=== PATIENT | female | born 1955 | race Caucasian/White ===

== ENCOUNTER 2025-05-10 10:25 | Outpatient (AMB) | payer MEDICARE, SELFPAY ==
--- NOTE | 2025-05-10 10:33 | MHC.OFFVIS ---
Intake Visit Reasons: 6 month PN Allergies amoxicillin Allergy (Unknown, Verified 05/10/25 10:34) Unknown Medication List - Last Reconciled 05/10/25 by Lilo Fall CNP atorvastatin 40 mg PO DAILY gabapentin 600 mg PO DAILY losartan-hydrochlorothiazide 50-12.5 mg 1 tab PO DAILY rizatriptan take 1 tab at onset of headache; if no relief may repeat 1 tab after at least 2 hrs; max = 3 tabs/24 hr PO 30 days HPI Comments Details: 70-year-old woman with HTN, PN and associated pain, and migraine. She was doing okay. Pain was controlled with gabapentin.?Migraines would happen in spurts. She could have headache every day for a week and then could go few weeks without any. Rizatriptan as needed helped. Triggers included weather changes and lack of sleep.?Sleep was not so good. She tried trazodone, but did not like how she felt. 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 [facility] Medical History (Updated 05/10/25 @ 10:36 by Lilo Fall CNP) Peripheral neuropathy Hypertension Insomnia GERD (gastroesophageal reflux disease) Depression Migraine without aura Review of Systems Const Denies chills, Denies daytime sleepiness, Reports difficulty sleeping, Denies fatigue, Denies fever(s), Denies frequent falls, Reports headache(s), Denies increased appetite, Denies poor appetite, Denies snoring, Denies weakness, Denies weight gain and Denies weight loss Eyes Denies loss of vision ENT Denies vertigo, Denies dizziness and Reports headache(s) Card Denies chest pain at rest, Denies chest pain with activity, Denies syncope, Denies leg edema and Denies palpitations Resp Denies snoring GI Denies constipation, Denies heartburn, Denies diarrhea and Denies nausea Denies urinary frequency, Denies urinary incontinence and Denies urinary urgency Musc Denies abnormal gait, Denies numbness and Denies tingling Skin/Breast Denies dry skin and Denies rash Neuro Denies abnormal gait, Denies vertigo, Denies dizziness, Denies syncope, Denies frequent falls, Reports headache(s), Denies lack of coordination, Denies loss of vision, Denies memory loss, Denies numbness, Denies restless legs, Denies seizure-like activity, Denies tingling, Denies paresthesias, Denies tremor(s) and Denies weakness Psych Denies anxiety, Denies depression, Denies auditory hallucinations, Denies memory loss, Denies visual hallucinations and Denies suicidal ideation Endo Denies fatigue and Denies palpitations Physical Exam Const Other: General Appearance:? normal, in no acute distress. Skin:? no rashes, no significant birthmarks. Heart:? S1, S2 normal, no murmurs. Lungs:? clear anteriorly and posteriorly. Extremities:? no edema. Psych:? alert, oriented, cognitive function intact, cooperative with exam. Neuro Other: Mental Status:?Normal attention, orientation, memory and affect.? Cranial Nerves:?Pupils are equal, round and reactive to light. External occular muscles are intact. Visual dc are full. Face is symmetrical. Facial sensations are normal. Tongue is midline. Palate elevates symmetrically. Shoulder shrugging is normal. Hearing to bedside conversation is normal. Sensory Exam:?....? Coordination:?No ataxia,?no titubation.? Gait Exam: Within normal limits. Cerebellar Signs:?[id number] is okay. Extrapyramidal System:?No tremor, rigidity with normal facial expressions.? Pronator Drift:?Not present.? Involuntary Movements:?No tremors seen.? Speech:?Normal.? Results Reviewed Results Reviewed: MRI brain [facility] at [place] in Nov 2021: WNL (reported) Mammogram at [facility] in Nov 2020: L breast nodule Assessment & Plan Assessment & Plan (1) Migraine without aura: Code(s): G43.009 - Migraine without aura, not intractable, without status migrainosus Category: Medical Qualifiers: Status migrainosus presence: without status migrainosus Intractability: not intractable Qualified Code(s): G43.009 - Migraine without aura, not intractable, without status migrainosus Plan: Continue rizatriptan 10mg 1 tablet as needed for migraine. (2) Peripheral neuropathy: Code(s): G62.9 - Polyneuropathy, unspecified Category: Medical Qualifiers: Peripheral neuropathy type: polyneuropathy, unspecified Qualified Code(s): G62.9 - Polyneuropathy, unspecified Plan: Continue gabapentin 600mg 1 tablet daily. Plan Meds tried: Topamax, Verapamil, Gabapentin, sumatriptan, rizatriptan Coding Level of Care Code Est Pt Level 4 (48833) Diagnoses Migraine without aura and without status migrainosus, not intractable G43.009 Status migrainosus presence: without status migrainosus Intractability: not intractable Peripheral polyneuropathy G62.9 Peripheral neuropathy type: polyneuropathy, unspecified
--- OUTSIDE RECORDS SUMMARY | 2025-05-10 11:18 | XMS_ITS | Clinical Summary ---
Author Organization [facility] Address [address] [place] [address] Phone Care Team Providers Care Greens Tier Name Role Phone Anay Brady MD Primary Care Provider [phone] Allergies Active Allergy Reactions Criticality Noted Date Comments Amoxicillin Other 08/26/2017 Medications acetaminophen (TYLENOL) 500 mg tablet Take 1 Tablet by mouth every 6 hours as needed for Pain. 4 Active cetirizine (ZyrTEC) 10 mg tablet TAKE 1 TABLET BY MOUTH EVERY DAY . *OTC NC* 4 Active gabapentin (NEURONTIN) 300 mg capsule 2 tabs qHS PO, then 2 tabs PO earlier in day prn 1 Active rizatriptan (MAXALT) 10 mg tablet Take 1 Tablet by mouth 2 times daily as needed for Migraine. 4 Active ibuprofen (ADVIL,MOTRIN) 600 mg tablet Take 1 Tablet by mouth every 8 hours as needed for Pain. 2 Active triamcinolone acetonide (KENALOG-40) 40 mg/mL injection Inject 0.5 mL into the articular space once for 1 dose. 3 Active clotrimazole (LOTRIMIN) 1 % cream Apply topically 2 (two) times a day. 15 g 1 4 Active Additional Information Patient not taking.Reported on 05/03/2025 tiZANidine (ZANAFLEX) 2 mg tablet TAKE 1 TABLET (2 MG TOTAL) BY MOUTH EVERY 8 (EIGHT) HOURS IF NEEDED FOR MUSCLE SPASMS. 180 tablet 1 5 Active diclofenac (VOLTAREN) 1 % topical gel Apply 2 g topically 2 (two) times a day. 60 g 2 5 Active traMADoL (ULTRAM) 50 mg tabletIndicati ons:Chronic midline low back pain without sciatica,Chron ic right-sided thoracic back pain Take 2 tablets (100 mg total) by mouth 2 (two) times a day if needed for moderate pain. Max Daily Amount: 200 mg 40 tablet 5 Active atorvastatin (LIPITOR) 40 mg tablet Take 1 tablet (40 mg total) by mouth at bedtime. 90 tablet 2 5 Active losartan-hydro CHLOROthiazide (HYZAAR) 50-12.5 mg per tablet Take 1 tablet by mouth 1 (one) time each day. 90 tablet 1 5 Active mirtazapine (REMERON) 7.5 mg tablet Take 1 tablet (7.5 mg total) by mouth at bedtime. 30 each 5 5 11/04/19 26 Active atorvastatin (LIPITOR) 40 mg tablet TAKE 1 TABLET BY MOUTH EVERY DAY 4 05/03/20 25 Discontin ued(Reord er) traMADoL (ULTRAM) 50 mg tablet Take 1 Tablet by mouth at bedtime as needed for Pain. 3 05/03/20 25 Discontin ued(Expir ed) fexofenadine ([place]) 180 mg tablet Take 1 Tablet by mouth daily for 30 days. 4 05/03/20 25 Discontin ued(Ineff ective) fluconazole (Diflucan) 100 mg tablet Take 1 tablet (100 mg total) by mouth 1 (one) time each day. 7 each 5 05/03/20 25 Discontin ued(Ineff ective) losartan-hydro CHLOROthiazide (HYZAAR) 50-12.5 mg per tablet Take 1 tablet by mouth 1 (one) time each day. 90 tablet 1 5 05/03/20 25 Discontin ued(Reord er) traZODone (DESYREL) 50 mg tablet Take 1 tablet (50 mg total) by mouth at bedtime as needed for sleep. 30 tablet 5 5 05/08/20 Discontin ued(Expir ed) mirtazapine (REMERON) 7.5 mg tablet Take 1 tablet (7.5 mg total) by mouth at bedtime. 30 each 5 5 05/08/20 Discontin ued(Reord er) Active Problems Problem Noted Date Diagnosed Date Insomnia 05/03/2025 Chronic pain of right ankle 03/16/2023 Depression 03/16/2023 Assessment & Plan (11/30/2024 11:49 AM EDT): Edema 03/05/2021 Chronic frontal sinusitis 12/18/2020 Hyperlipidemia 12/18/2020 Assessment & Plan (11/30/2024 11:49 AM EDT): Overweight (BMI 25.0-29.9) 12/18/2020 Venous insufficiency 12/18/2020 Breast nodule 11/28/2020 Overview (06/14/2024): 11/26/20: Left, developing . 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 Migraine 06/08/2020 Post-nasal drip 06/08/2020 Encounters Date Type Department Care Team Description 05/08/2025 Telephone Internal Medicine [address] [phone] Anay Brady MD 05/03/2025 8:45 AM EDT Office Visit Internal Medicine [address] [phone] Anay Brady MD Insomnia, unspecified type (Primary Dx); Mixed hyperlipidemia; Essential hypertension; Overweight (BMI 25.0-29.9) 05/01/2025 10:30 AM EDT Treatment [address] [phone] Gracie Treviño, PT Chronic midline low back pain without sciatica (Primary Dx); Chronic right-sided thoracic back pain 04/26/2025 3:30 PM EDT Treatment [address] [phone] Gracie Treviño, PT Chronic midline low back pain without sciatica (Primary Dx); Chronic right-sided thoracic back pain 04/24/2025 9:45 AM EDT Treatment [address] [phone] Daron Canales, [employer] Chronic midline low back pain without sciatica (Primary Dx); Chronic right-sided thoracic back pain 04/20/2025 3:00 PM EDT Treatment [address] [phone] Gracie Treviño, PT Chronic midline low back pain without sciatica (Primary Dx); Chronic right-sided thoracic back pain 04/17/2025 2:00 PM EDT Treatment [address] [phone] Daron Canales, [employer] Chronic midline low back pain without sciatica (Primary Dx); Chronic right-sided thoracic back pain 04/12/2025 3:30 PM EDT Treatment [address] [phone] Daron Canales, [employer] Chronic midline low back pain without sciatica (Primary Dx); Chronic right-sided thoracic back pain 03/16/2025 1:30 PM EDT Evaluation [address] [phone] Gracie Treviño, PT Chronic midline low back pain without sciatica (Primary Dx); Chronic right-sided thoracic back pain 03/16/2025 Plan of Care Documentation [facility] [address] [place] [address] 02/16/2025 8:15 AM EDT Office Visit Internal Medicine [facility] 175 [facility] [address] [place] [phone] Anay Brady MD Chronic midline low back pain without sciatica (Primary Dx); Chronic right-sided thoracic back pain 02/14/2025 11:20 PM EDT - 02/15/2025 6:13 AM EDT Emergency [facility] [address] [place] [phone] Azeem Long MD Flank pain (Primary Dx); Chronic right-sided thoracic back pain Discharge Disposition: Home or Self Care 02/14/2025 Telephone Internal Medicine - [place] 175 [facility] [address] [place] [phone] Anay Brady MD from Last 3 Months Immunizations Name Administration Dates Next Due Influenza trivalent, 0.5mL ( Fluzone High-dose) 65yo and older 06/08/2020 Pneumococcal conjugate 13 va lent (Prevnar 13, PCV13) 2mo and older 06/08/2020 Pneumococcal polysaccharide 23 valent (Pneumovax 23) 2yo and older 03/13/2022 Surgical History Surgery Date Site/Laterality Comments OTHER SURGICAL HISTORY 08/18/2017 PROCEDURE: SKIN CYST; COMMENT: Dr Mahesh Beltre removed back inclusion cyst SECTION 10/1981 PROCEDURE: HISTORICAL ; COMMENT: and 09/1982, both daughters by C-sections, breech then placenta previa WISDOM TOOTH EXTRACTION 04/1979 Bilateral PROCEDURE: HISTORICAL WISDOM TEETH EXTRACTION Medical History Medical History Date Comments Essential hypertension 06/08/2020 DX:Essent ial hypertension; COMMENT: On meds since age 48's Migraine syndrome 06/08/2020 DX:Migraine sy ndrome Hyperlipidemia 06/08/2020 DX:Hyperlipidemi a Post-nasal drip 06/08/2020 DX:Post-nasal dr ip 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 Depression Venous insufficiency Family History Medical History Relation Name Comments Other: back surgery Brother No Known Problems Daughter 1 Other: chronic bronchitis Daughter 2 in childhood mainly Hyperlipidemia Father Hypertension Father Other: kidney failure Father a ge 87 Coronary artery disease Maternal Grandfather 75, 3 yrs after hip Fx Coronary artery disease Maternal Grandmother 75 Hyperlipidemia Mother Hypertension Mother Other: ?MA Mother age 70 in her sleep Other: PAD leg amput Paternal Grandfather 80y/o Dementia Paternal Grandmother ag e 93 Allergies Sister Keira 6 yrs younger. Eczema Sister Keira 1 yr younger Relation Name Status Comments Brother Alive Daughter 1 Alive Daughter 2 Alive Father Maternal Grandfather Maternal Grandmother Mother Paternal Grandfather Paternal Grandmother Sister Keira Alive Social History Tobacco Use Types Packs/Day Years Used Date Smoking Tobacco: Never Smokeless Tobacco: Never Tobacco Cessation:Counseling Given: Not Answered Alcohol Use Standard Drinks/Week Comments Yes 0 (1 standard drink = 0.6 oz pur e alcohol) Food Access & Nutrition Answer Date Rec orded Do you have access to a vari ety of food including fruits and vegetables? Yes 07/16/2024 Health Literacy Answer Date Recorded How often do you need to hav e someone help you when you read instructions, pamphlets, or other written material from your doctor or pharmacy? Never 07/16/2024 Caregiver: How often do you need to have someone help you when you read instructions, pamphlets, or other written material from your doctor or pharmacy? Not on file 07/16/2024 Financial Risk Answer Date Recorded How hard is it for you to pa y for the very basics like food, housing, medical care, and air conditioning / heating? Not very hard 07/16/2024 Transportation Answer Date Recorded Has the lack of transportati on kept you from meetings, work, or from getting things needed for daily living? No Has the lack of transportati on kept you from medical appointments or from getting medications? No 07/16/2024 Social Isolation Answer Date Recorded How often do you feel lonely or isolated from those around you? Sometimes 07/16/2024 Food Risk Answer Date Recorded Within the past 12 months we worried whether our food would run out before we got money to buy more. Never true 07/16/2024 Within the past 12 months th e food we bought just didn't last and we didn't have money to get more. Never true 07/16/2024 Dependent Care Answer Date Recorded Do you need help finding or paying for care for your loved ones. For example, child adolescent psychiatrist or elderly care for an older adult? No 07/16/2024 Education Answer Date Recorded Do you think completing more education or training, like finishing a GED, going to college, or learning a trade, would be helpful for you? N/A 07/16/2024 Employment and Income Answer Date Recor ded During the last four weeks, have you been actively looking for work? No 07/16/2024 Living Situation Answer Date Recorded What is your living situation? 1 09/15/2023 Interpersonal Safety Answer Date Record ed Physical Abuse 11/24/2024 Verbal Abuse 11/24/2024 Comments No Sex and Gender Information Value Date Recorded Sex Assigned at Female 08/09/2024 1:34 PM EST Legal Sex Female 9:30 PM EST Gender Identity Female 08/09/2024 1:34 PM EST Sexual Orientation Straight 08/09/2024 1: 34 PM EST Obstetrics History Last Filed Vital Signs Vital Sign Reading Time Taken Comments Blood Pressure 112/62 05/03/2025 8:47 AM EDT Pulse 71 05/03/2025 8:47 AM EDT Temperature 36.6 C (97.9 F) 05/03/2025 8:47 AM EDT Respiratory Rate 18 05/03/2025 8:47 AM EDT Oxygen Saturation 95% 05/03/2025 8:47 AM EDT Inhaled Oxygen Concentration - - Weight 68.9 kg (152 lb) 05/03/2025 8:47 AM EDT Height 154.9 cm (5' 1 ) 05/03/2025 8:47 AM EDT Body Mass Index 28.72 05/03/2025 8:47 AM EDT Plan of Treatment Upcoming Encounters Date Type Department Care Team (Late st Contact Info) Description 05/18/2025 12:00 PM EDT Treatment [address] [phone] Daron Canales PTA 05/25/2025 9:30 AM EDT Treatment [facility] [address] [phone] Daron Canales, [employer] 06/01/2025 9:30 AM EDT Treatment [facility] [address] [phone] Daron Canales, [employer] 06/08/2025 9:30 AM EDT Treatment [facility] [address] [phone] Gracie Treviño, PT 06/15/2025 9:30 AM EDT Treatment [facility] [address] [phone] Gracie Treviño, PT 11/07/2025 9:00 AM EST Office Visit Internal Medicine - [place] 175 [facility] [address] [place] [phone] Anay Brady MD [address] [place] [phone] Health Maintenance Due Date Last Done Comments DTaP,Tdap,and Td Vaccines (1 - Tdap) 1972 Zoster Vaccines (1 of 2) 2003 Osteoporosis Screening (Bone Density Screening) 08/23/2022 COVID-19 Vaccine ( - 2023- season) 2024 Influenza Vaccine (#1) 2025 06/08/2020 Social Influencers of Health Screening 07/16/2025 07/16/2024 Falls Risk Assessment 11/30/2025 11/30/2024, 025 Medicare Annual Wellness Visit 11/30/2025 11/30/2024 Breast Cancer Screening 12/09/2025 12/10/19, 12/03/2022, 11/28/2021, Additional history exists Hypertension/CHF/CAD Annual BMP Blood Test 02/14/2026 02/14/2025, 08/09/2024, 07/21/2024, Additional history exists RSV Immunization Adult Patients (1 - 1-dose 75+ series) 2028 Cholesterol Screening (Lipid Panel) 01/18/2029 01/19/2024, 01/19/2024 Colorectal Cancer Screening: Colonoscopy 11/24/2034 11/24/2024 Hepatitis C Screening Completed 06/12/2020 Pneumococcal Vaccine: 50+ Years Completed 03/13/2022, 06/08/2020 Depression Screening Completed 11/30/2024 HIB Vaccines Aged Out No longer eligi ble based on patient's age to complete this topic HPV Vaccines Aged Out No longer eligi ble based on patient's age to complete this topic Hepatitis A Vaccines Aged Out No long er eligible based on patient's age to complete this topic Hepatitis B Vaccines Aged Out No long er eligible based on patient's age to complete this topic IPV Vaccines Aged Out No longer eligi ble based on patient's age to complete this topic MMR Vaccines Aged Out No longer eligi ble based on patient's age to complete this topic Meningococcal ACWY Vaccine Aged Out N o longer eligible based on patient's age to complete this topic Meningococcal B Vaccine Aged Out No l onger eligible based on patient's age to complete this topic RSV Immunization Patients Under 20 months Aged Out No longer eligible based on patient's age to complete this topic Varicella Vaccines Aged Out No longer eligible based on patient's age to complete this topic Procedures Procedure Name Priority Date/Time Associated Diagnosis Comments ECG ANNOTATED 02/16/2025 CT ANGIO CHEST/ABDOMEN/PELVIS WO AND/OR W CONTRAST STAT 02/15/2025 2:26 AM EDT Flank pain XR THORACIC SPINE 3 VIEWS STAT 02/14/2025 8:37 PM EDT XR LUMBAR SPINE 2-3 VIEWS STAT 02/14/2025 8:37 PM EDT XR CHEST 2 VIEWS STAT 02/14/2025 8:32 PM EDT TROPONIN I HIGH SENSITIVITY STAT 02/14/2025 8:16 PM EDT CBC WITH AUTO DIFFERENTIAL STAT 02/14/2025 6:59 PM EDT B-TYPE NATRIURETIC PEPTIDE STAT 02/14/2025 6:59 PM EDT MAGNESIUM STAT 02/14/2025 6:59 PM EDT LIPASE STAT 02/14/2025 6:59 PM EDT COMPREHENSIVE METABOLIC PANEL STAT 02/14/2025 6:59 PM EDT CBC AND DIFFERENTIAL STAT 02/14/2025 6:59 PM EDT TROPONIN I HIGH SENSITIVITY STAT 02/14/2025 6:59 PM EDT ECG 12-LEAD STAT 02/14/2025 6:40 PM EDT COLONOSCOPY Routine 11/24/2024 12:34 PM EDT Colon cancer screening LIPID PANEL Routine 01/19/2024 JONAS SCREENING DIGITAL Routine 12/10/2023 8:59 AM EDT Encounter for screening mammogram for malignant neoplasm of breast HM HEPATITIS C SCREENING Routine 06/12/2020 from Last 3 Months or Most Recently Relevant to Health Maintenance Results * ECG-Annotated (02/16/2025) us Provider Onbase MD ECG ORDERABLES Final Result * CT Angio Chest/Abdomen/Pelvis wo and/or w Contrast (02/15/2025 2:26 AM EDT) Anatomical Region Laterality Modality Body Computed Tomogra phy 02/15/2025 3:03 AM EDT Impressions 02/15/2025 3:03 AM EDT Impression: 1. No thoracic aortic aneurysm or dissection 2. No pulmonary emboli 3. No pneumonia Exam: CTA Abdomen and Pelvis with IV contrast. Procedure: Contrast was administered. MIP reconstructions were performed. Comparison: None Clinical history: Abdominal pain aortic dissection suspected. Findings: CTA abdomen: No abdominal aortic aneurysm, dissection or occlusion. Celiac artery SMA and [place] are patent without high-grade stenosis or occlusion. Renal arteries bilaterally are patent without high-grade stenosis or occlusion. Iliac arteries bilaterally do not demonstrate aneurysm, dissection or occlusion. No high-grade stenosis. The liver, spleen and pancreas do not demonstrate any acute process. No gallstones or evidence for acute cholecystitis No choledocholithiasis or biliary obstruction. Normal adrenal glands. No renal calculi or hydronephrosis. Symmetric enhancement of the kidneys bilaterally. No small bowel obstruction Appendix is normal in caliber Scattered colonic diverticula without acute diverticulitis. Uterus and adnexa have a normal appearance for CT. Urinary bladder does not demonstrate stones or wall thickening. No free fluid Degenerative disease at L4-5. Impression: 1. No abdominal aortic aneurysm, dissection or occlusion. 2. No acute intra-abdominal process. This document has been electronically signed by: Corine Park MD on 02/15/2025 03:03:46 Narrative 02/15/2025 3:03 AM EDT INDICATION: Abdominal pain, aortic dissection suspected Exam: CTA Chest with IV contrast. Procedure: Contrast was administered. Coronal and sagittal MIP reformats were performed Comparison: None Clinical history: Abdominal pain aortic dissection suspected Findings: No pulmonary emboli No thoracic aortic aneurysm or dissection. Atherosclerotic calcifications are seen at the coronary arteries. No hilar or mediastinal adenopathy. No pericardial fluid collection. No pneumothorax. No pleural fluid collection. No pneumonia No thoracic spine compression fractures Procedure Note Corine Park MD - 02/15/2025 INDICATION: Abdominal pain, aortic dissection suspected Exam: CTA Chest with IV contrast. Procedure: Contrast was administered. Coronal and sagittal MIP reformats were performed Comparison: None Clinical history: Abdominal pain aortic dissection suspected Findings: No pulmonary emboli No thoracic aortic aneurysm or dissection. Atherosclerotic calcifications are seen at the coronary arteries. No hilar or mediastinal adenopathy. No pericardial fluid collection. No pneumothorax. No pleural fluid collection. No pneumonia No thoracic spine compression fractures IMPRESSION: Impression: 1. No thoracic aortic aneurysm or dissection 2. No pulmonary emboli 3. No pneumonia Exam: CTA Abdomen and Pelvis with IV contrast. Procedure: Contrast was administered. MIP reconstructions wereperformed. Comparison: None Clinical history: Abdominal pain aortic dissection suspected. Findings: CTA abdomen: No abdominal aortic aneurysm, dissection or occlusion. Celiac artery SMA and [place] are patent without high-grade stenosis or occlusion. Renal arteries bilaterally are patent without high-grade stenosis or occlusion. Iliac arteries bilaterally do not demonstrate aneurysm, dissection or occlusion. No high-grade stenosis. The liver, spleen and pancreas do not demonstrate any acute process. No gallstones or evidence for acute cholecystitis No choledocholithiasis or biliary obstruction. Normal adrenal glands. No renal calculi or hydronephrosis. Symmetric enhancement of the kidneys bilaterally. No small bowel obstruction Appendix is normal in caliber Scattered colonic diverticula without acute diverticulitis. Uterus and adnexa have a normal appearance for CT. Urinary bladder does not demonstrate stones or wall thickening. No free fluid Degenerative disease at L4-5. Impression: 1. No abdominal aortic aneurysm, dissection or occlusion. 2. No acute intra-abdominal process. This document has been electronically signed by: Corine Park MD on 02/15/2025 03:03:46 us Scot Christa Long MD IMG CT PROCEDURES Final Result * XR Lumbar Spine 2-3 Views (02/14/2025 8:37 PM EDT) Anatomical Region Laterality Modality Spine, L-spine Radiographic [place] ging 02/15/2025 8:1 8 AM EDT Impressions 02/15/2025 8:21 AM EDT FINDINGS/IMPRESSION: Levoconvex lumbar curvature. Severe lower lumbar predominant facet arthritis. No fracture. Multilevel degenerative loss of disc space height with endplate spurring, most pronounced at L3-4 and L4-5. -------- FINAL REPORT -------- Dictated By: DALE BIGGS Dictated Date: 02/15/2025 08:18 ET Assigned Physician: DALE BIGGS Reviewed and Electronically Signed By: DALE BIGGS Signed Date: 02/15/2025 08:21 ET Workstation ID: [id number] Transcribed By: Self Edit Transcribed Date: 02/15/2025 08:18 ET Narrative 02/15/2025 8:21 AM EDT XR LUMBAR SPINE 2-3 VIEWS INDICATION: Pain TECHNIQUE: XR LUMBAR SPINE 2-3 VIEWS COMPARISON: No priors available. Procedure Note Dale Biggs MD - 02/15/2025 XR LUMBAR SPINE 2-3 VIEWS INDICATION: Pain TECHNIQUE: XR LUMBAR SPINE 2-3 VIEWS COMPARISON: No priors available. IMPRESSION: FINDINGS/IMPRESSION: Levoconvex lumbar curvature. Severe lower lumbarpredominant facet arthritis. No fracture. Multilevel degenerative lossof disc space height with endplate spurring, most pronounced at L3-4 andL4-5. -------- FINAL REPORT -------- Dictated By: DALE BIGGS Dictated Date: 02/15/2025 08:18 ET Assigned Physician: DALE BIGGS Reviewed and Electronically Signed By: DALE BIGGS Signed Date: 02/15/2025 08:21 ET Workstation ID: [id number] Transcribed By: Self Edit Transcribed Date: 02/15/2025 08:18 ET us Otis Miller MD IMG XR PROCEDURES Final Res ult * XR Thoracic Spine 3 Views (02/14/2025 8:37 PM EDT) Anatomical Region Laterality Modality Spine, T-spine Radiographic [place] ging 02/15/2025 8:17 AM EDT Impressions 02/15/2025 8:18 AM EDT FINDINGS/IMPRESSION: Dextroconvex thoracic scoliosis. Exaggerated thoracic kyphosis. No fracture. Multilevel degenerative loss of disc space height with endplate spurring. Mild degenerative thoracic facet arthritis. Visualized lungs are clear. -------- FINAL REPORT -------- Dictated By: DALE BIGGS Dictated Date: 02/15/2025 08:17 ET Assigned Physician: DALE BIGGS Reviewed and Electronically Signed By: DALE BIGGS Signed Date: 02/15/2025 08:18 ET Workstation ID: [id number] Transcribed By: Self Edit Transcribed Date: 02/15/2025 08:17 ET Narrative 02/15/2025 8:18 AM EDT XR THORACIC SPINE 3 VIEWS INDICATION: Pain TECHNIQUE: XR THORACIC SPINE 3 VIEWS COMPARISON: No priors available. Procedure Note Dale Biggs MD - 02/15/2025 XR THORACIC SPINE 3 VIEWS INDICATION: Pain TECHNIQUE: XR THORACIC SPINE 3 VIEWS COMPARISON: No priors available. IMPRESSION: FINDINGS/IMPRESSION: Dextroconvex thoracic scoliosis. Exaggeratedthoracic kyphosis. No fracture. Multilevel degenerative loss of discspace height with endplate spurring. Mild degenerative thoracic facetarthritis. Visualized lungs are clear. -------- FINAL REPORT -------- Dictated By: DALE BIGGS Dictated Date: 02/15/2025 08:17 ET Assigned Physician: DALE BIGGS Reviewed and Electronically Signed By: DALE BIGGS Signed Date: 02/15/2025 08:18 ET Workstation ID: [id number] Transcribed By: Self Edit Transcribed Date: 02/15/2025 08:17 ET us Otis Miller MD IMG XR PROCEDURES Final Res ult * XR Chest 2 Views (02/14/2025 8:32 PM EDT) Anatomical Region Laterality Modality Body Radiographic [place] ging 02/14/2025 8:52 PM EDT Impressions 02/14/2025 8:52 PM EDT FINDINGS/IMPRESSION: Mild hyperinflation. No congestive heart failure. No consolidation or effusion. Tortuous aorta. Scoliosis. Degenerative changes in the shoulders and spine. -------- FINAL REPORT -------- Dictated By: Piero Hoyos Dictated Date: 02/14/2025 20:52 ET Assigned Physician: Piero Hoyos Reviewed and Electronically Signed By: Piero Hoyos Signed Date: 02/14/2025 20:52 ET Workstation ID: [id number] Transcribed By: Self Edit Transcribed Date: 02/14/2025 20:52 ET Narrative 02/14/2025 8:52 PM EDT XR CHEST 2 VIEWS INDICATION: chest pain TECHNIQUE: XR CHEST 2 VIEWS COMPARISON: No priors available. Procedure Note Piero Hoyos MD - 02/14/2025 XR CHEST 2 VIEWS INDICATION: chest pain TECHNIQUE: XR CHEST 2 VIEWS COMPARISON: No priors available. IMPRESSION: FINDINGS/IMPRESSION: Mild hyperinflation. No congestive heart failure.No consolidation or effusion. Tortuous aorta. Scoliosis. Degenerativechanges in the shoulders and spine. -------- FINAL REPORT -------- Dictated By: Piero Hoyos Dictated Date: 02/14/2025 20:52 ET Assigned Physician: Piero Hoyos Reviewed and Electronically Signed By: Piero Hoyos Signed Date: 02/14/2025 20:52 ET Workstation ID: [id number] Transcribed By: Self Edit Transcribed Date: 02/14/2025 20:52 ET Otis Miller MD IMG XR PROCEDURES Final Res ult * Troponin I high sensitivity (02/14/2025 8:16 PM EDT) Only the most recent of2 resultswithin the time period is included. [facility] High Sensitivity Troponin I 9 <=54 ng/L LAB CHEMISTRY METHOD 02/14/2025 9:03 PM EDT [facility] Blood Venous blood specimen / Unknown Venipuncture / Unknown 02/14/2025 8:16 PM EDT 02/14/2025 8:27 PM EDT Narrative [facility] - 02/14/2025 9:03 PM EDT High levels of biotin in samples may falsely decrease hsTroponin values. Use caution when interpreting hsTroponin results in patients taking biotin who exhibit renal impairment (eGFR <60) or in patients taking more than 20 mg/day of biotin. Otis Miller MD LAB BLOOD ORDERABLES Final Result [facility] [address] [place] [address], * CBC auto differential (02/14/2025 6:59 PM EDT) [facility] WBC 7.2 4.8 - 10.8 K/mcL LAB HEMETOLOGY METHOD 02/14/2025 7:42 PM EDT [facility] RBC 4.20 3.80 - 4.80 M/mcL LAB HEMETOLOGY METHOD 02/14/2025 7:42 PM EDT [facility] Hemoglobin 12.6 11.5 - 16.0 g/dL LAB HEMETOLOGY METHOD 02/14/2025 7:42 PM EDT [facility] Hematocrit 39.2 35.0 - 47.0 % LAB HEMETOLOGY [facility] MCV 93.3 79.0 - 98.0 FL LAB HEMETOLOGY METHOD 02/14/2025 7:42 PM EDT [facility] MCH 30.0 27.0 - 32.0 pcg LAB HEMETOLOGY METHOD 02/14[facility]2025 7[facility] MCHC 32.1 32.0 - 37.0 g/dL LAB HEMETOLOGY METHOD 02/14/2025 7[facility] RDW 13.2 11.0 - 15.0 % LAB HEMETOLOGY METHOD 02/14/2025 7:42 PM EDT [facility] Platelets 263 130 - 400 K/mcL LAB HEMETOLOGY METHOD 02/14/2025 7[facility] MPV 10.5 7.0 - 11.0 FL LAB HEMETOLOGY METHOD 02/14/2025 7[facility] NRBC 0.0 <1.0 % LAB HEMETOLOGY METHOD 02/14/2025 7:42 PM EDT [facility] NRBC Absolute 0.00 <0.10 K/mcL LAB HEMETOLOGY METHOD 02/14/2025 7:42 PM EDT [facility] Neutrophils Relative 71.8 % LAB HEMETOLOGY METHOD 02/14[facility]2025 7[facility] Lymphocytes Relative 20.9 % LAB HEMETOLOGY METHOD 02/14[facility]2025 7[facility] Monocytes Relative 6.1 % LAB HEMETOLOGY METHOD 02/14/2025 7:42 PM EDT [facility] Eosinophils Relative 0.6 % LAB HEMETOLOGY METHOD 02/14/2025 7:42 PM EDT [facility] Basophils Relative 0.3 % LAB HEMETOLOGY METHOD 02/14/2025 7:42 PM EDT [facility] Immature Granulocytes Relative 0.3 % LAB HEMETOLOGY METHOD 02/14/2025 7:42 PM EDT [facility] Neutrophils Absolute 5.17 1.50 - 7.00 K/mcL LAB HEMETOLOGY METHOD 02/14/2025 7:42 PM EDT [facility] Lymphocytes Absolute 1.50 1.00 - 5.00 K/mcL LAB HEMETOLOGY METHOD 02/14/2025 7:42 PM EDT [facility] Monocytes Absolute 0.44 0.20 - 1.00 K/mcL LAB HEMETOLOGY METHOD 02/14/2025 7:42 PM EDT [facility] Eosinophils Absolute 0.04 0.00 - 0.50 K/mcL LAB HEMETOLOGY METHOD 02/14/2025 7:42 PM EDT [facility] Basophils Absolute 0.02 0.00 - 0.20 K/mcL LAB HEMETOLOGY METHOD 02/14/2025 7:42 PM EDT [facility] Immature Granulocytes Absolute 0.02 0.00 - 0.03 K/mcL LAB HEMETOLOGY METHOD 02/14/2025 7:42 PM EDT [facility] Blood Venous blood specimen / Unknown Venipuncture / Unknown 02/14/2025 6:59 PM EDT 02/14/2025 7:12 PM EDT us Otis Miller MD LAB BLOOD ORDERABLES Final Result [facility] [address] [place] [address], [place] [phone] * B-type natriuretic peptide (02/14/2025 6:59 PM EDT) BNP 75 <=100 pcg/mL LAB CHEMISTRY METHOD 02/14/2025 8:18 PM EDT [facility] Blood Venous blood specimen / Unknown Venipuncture / Unknown 02/14/2025 6:59 PM EDT 02/14/2025 7:12 PM EDT Otis Miller MD LAB BLOOD ORDERABLES Final Result [facility] [address] [place] [address], [place] [phone] * Magnesium (02/14/2025 6:59 PM EDT) Magnesium 2.1 1.9 - 2.6 mg/dL LAB CHEMISTRY METHOD 02/14/2025 7:52 PM EDT [facility] Blood Venous blood specimen / Unknown Venipuncture / Unknown 02/14/2025 6:59 PM EDT 02/14/2025 7:12 PM EDT Otis Miller MD LAB BLOOD ORDERABLES Final Result [facility] [address] [place] [address], [place] [phone] * Lipase (02/14/2025 6:59 PM EDT) Lipase 47 13 - 75 unit/L LAB CHEMISTRY METHOD 02/14/2025 7:52 PM EDT [facility] Blood Venous blood specimen / Unknown Venipuncture / Unknown 02/14/2025 6:59 PM EDT 02/14/2025 7:12 PM EDT Otis Miller MD LAB BLOOD ORDERABLES Final Result [facility] [address] [place] [address], * (ABNORMAL) Comprehensive metabolic panel (02/14/2025 6:59 PM EDT) Sodium 137 133 - 145 mmol/L LAB CHEMISTRY METHOD 02/14/2025 7:52 PM EDT [facility] Potassium 3.4(L) 3.5 - 5.5 mmol/L LAB CHEMISTRY METHOD 02/14/2025 7:52 PM [facility] Chloride 104 96 - 110 mmol/L LAB CHEMISTRY METHOD 02/14/2025 7:52 PM [facility] CO2 24 21 - 32 mmol/L LAB CHEMISTRY METHOD 02/14[facility]2025 7:[facility] Anion Gap 9 3 - 11 LAB CHEMISTRY METHOD 02/14/2025 7:52 PM [facility] Glucose 122(H) 70 - 100 mg/dL LAB CHEMISTRY METHOD 02/14/2025 7:52 PM [facility] BUN 13 5 - 25 mg/dL LAB CHEMISTRY METHOD 02/14/2025 7:52 PM [facility] Creatinine 0.74 0.50 - 1.10 mg/dL LAB CHEMISTRY METHOD 02/14/2025 7:[facility] eGFR 87 >=60 mL/min/1. 73m2 LAB CHEMISTRY METHOD 02/14/2025 7:52 PM [facility] Comment:Calculation based on the Chronic Kidney Disease Epidemiology Collaboration (CKD-EPI) equation refit without adjustment for race. BUN/Creatinine Ratio 17.6 LAB CHEMISTRY METHOD 02/14/2025 7:52 PM [facility] Calcium 9.8 8.5 - 10.5 mg/dL LAB CHEMISTRY METHOD 02/14/2025 7:52 PM [facility] AST (SGOT) 18 10 - 42 unit/L LAB CHEMISTRY METHOD 02/14/2025 7:52 PM EDT [facility] ALT (SGPT) 21 10 - 60 unit/L LAB CHEMISTRY METHOD 02/14/2025 7:52 PM EDT [facility] Alkaline Phosphatase 119 42 - 121 unit/L LAB CHEMISTRY METHOD 02/14/2025 7:52 PM EDT [facility] Total Protein 8.1(H) 6.0 - 8.0 g/dL LAB CHEMISTRY METHOD 02/14/2025 7:52 PM EDT [facility] Albumin 4.0 3.2 - 5.0 g/dL LAB CHEMISTRY METHOD 02/14/2025 7:52 PM EDT [facility] Total Bilirubin 0.6 0.0 - 1.4 mg/dL LAB CHEMISTRY METHOD 02/14/2025 7:52 PM EDT [facility] Blood Venous blood specimen / Unknown Venipuncture / Unknown 02/14/2025 6:59 PM EDT 02/14/2025 7:12 PM EDT us Otis Miller MD LAB BLOOD ORDERABLES Final Result [facility] [address] [place] [address], * ECG 12 lead (02/14/2025 6:40 PM EDT) Ventricular Rate ECG 83 BPM GEMUSE Atrial Rate 83 BPM GEMUSE P-R Interval 114 ms GEMUSE QRS Duration 82 ms GEMUSE Q-T Interval 382 ms GEMUSE QTc 448 ms GEMUSE P Wave [place] 21 degrees GEMUSE R [place] -34 degrees GEMUSE T [place] 34 degrees GEMUSE ECG Interpretation Normal sinus rhythm Left axis deviation Left ventricular hypertrophy with repolarization abnormality Abnormal ECG When compared with ECG of 09-AUG-2024 12:07, No significant change was found Confirmed by Kuldeep NGUYEN YUFENG ([id number]) on 02/14/2025 9:23:07 PM GEMUSE 02/14/2025 6:40 PM EDT 02/14/2025 9:23 PM EDT us Otis Miller MD ECG ORDERABLES Final Resul t GEMUSE * COLONOSCOPY Anesthesia - MAC; [facility] ENDOSCOPY (11/24/2024 12:34 PM EDT) Anatomical Region Laterality Modality Other 11/24/2024 12:1 3 PM EDT Impressions 11/24/2024 12:35 PM EDT - Hemorrhoids found on perianal exam. - The examination was otherwise normal on direct and retroflexion views. - No specimens collected. Recommendation: - - Discharge patient to home. - Resume previous diet. - Continue present medications. - Repeat colonoscopy in 10 years for screening purposes. - Return to primary care physician. Narrative 11/24/2024 12:35 PM EDT [facility] Patient Name: Josy Leo Procedure Date: 11/24/2024 12:13 PM Date of : 1955 Age: 69 Gender: Female Note Status: Finalized Attending MD: Royer Ruvalcaba DO, [id number] Procedure Date No Time: 11/24/2024 Procedure: Colonoscopy Indications: Screening for colorectal malignant neoplasm Providers: Royer Ruvalcaba DO Referring MD: Anay Brady MD Medicines: Monitored Anesthesia Care Complications: No immediate complications. Estimated blood loss: None. Estimated Blood Loss: Estimated blood loss: none. Procedure: Pre-Anesthesia Assessment: - - Prior to the procedure, a History and Physical was performed, and patient medications and allergies were reviewed. The patient is competent. The risks and benefits of the procedure and the sedation options and risks were discussed with the patient. All questions were answered and informed consent was obtained. Patient identification and proposed procedure were verified by the physician, the nurse, the anesthesiologist, the superintendent plant and the physics technician in the pre-procedure area in the endoscopy suite. Mental Status Examination: alert and oriented. Airway Examination: normal oropharyngeal airway and neck mobility. Respiratory Examination: clear to auscultation. CV Examination: normal. Prophylactic Antibiotics: The patient does not require prophylactic antibiotics. Prior Anticoagulants: The patient has taken no anticoagulant or antiplatelet agents. ASA Grade Assessment: II - A patient with severe systemic disease. After reviewing the risks and benefits, the patient was deemed in satisfactory condition to undergo the procedure. The anesthesia plan was to use monitored anesthesia care (MAC). Immediately prior to administration of medications, the patient was re-assessed for adequacy to receive sedatives. The heart rate, respiratory rate, oxygen saturations, blood pressure, adequacy of pulmonary ventilation, and response to care were monitored throughout the procedure. The physical status of the patient was re-assessed after the procedure. After I obtained informed consent, the scope was passed under direct vision. Throughout the procedure, the patient's blood pressure, pulse, and oxygen saturations were monitored continuously. The Olympus Pediatric Colonosocpe was introduced through the anus and advanced to the cecum, identified by appendiceal orifice and ileocecal valve. The colonoscopy was performed without difficulty. The patient tolerated the procedure well. The quality of the bowel preparation was good. Findings: Hemorrhoids were found on perianal exam. The exam was otherwise without abnormality on direct and retroflexion views. Procedure Code(s): --- Professional --- G0121, Colorectal cancer screening; colonoscopy on individual not meeting criteria for high risk Diagnosis Code(s): --- Professional --- Z12.11, Encounter for screening for malignant neoplasm of colon K64.9, Unspecified hemorrhoids CPT copyright 2020 [employer]. All rights reserved. The codes documented in this report are preliminary and upon coat ironer hand review may be revised to meet current compliance requirements. ROYER Ruvalcaba DO 11/24/2024 12:35:28 PM This report has been signed electronically.Royer Ruvalcaba DO Number of Addenda: 0 Note Initiated On: 11/24/2024 12:13 PM Scope Withdrawal Time: 0 hours 8 minutes 51 seconds Scope In: 12:21:37 PM Scope Out: 12:33:36 PM Endoscopy Department at [facility] - [address] [place] [id number] Procedure Note Royer Ruvalcaba DO - 11/24/2024 [facility] Patient Name: Josy Leo Procedure Date: 11/24/2024 12:13 PM Date of : 1955 Age: 69 Gender: Female Note Status: Finalized Attending MD: Royer Ruvalcaba DO, [id number] Procedure Date No Time: 11/24/2024 Procedure: Colonoscopy Indications: Screening for colorectal malignant neoplasm Providers: Royer Ruvalcaba DO Referring MD: Anay Brady MD Medicines: Monitored Anesthesia Care Complications: No immediate complications. Estimated blood loss:None. Estimated Blood Loss: Estimated blood loss: none. Procedure: Pre-Anesthesia Assessment: - - Prior to the procedure, a History and Physicalwas performed, and patient medications and allergieswere reviewed. The patient is competent. The risks and benefits of the procedure and the sedation optionsand risks were discussed with the patient. Allquestions were answered and informed consent was obtained. Patient identification and proposed procedure were verified by the physician, the nurse, the anesthesiologist, the superintendent plant and thetechnician in the pre-procedure area in the endoscopy suite. Mental Status Examination: alert and oriented.Airway Examination: normal oropharyngeal airway and neck mobility. Respiratory Examination: clear to auscultation. CV Examination: normal. Prophylactic Antibiotics: The patient does not requireprophylactic antibiotics. Prior Anticoagulants: The patient has taken no anticoagulant or antiplatelet agents. ASA Grade Assessment: II - A patient with severesystemic disease. After reviewing the risks and benefits,the patient was deemed in satisfactory condition to undergo the procedure. The anesthesia plan was touse monitored anesthesia care (MAC). Immediately priorto administration of medications, the patient was re-assessed for adequacy to receive sedatives. The heart rate, respiratory rate, oxygen saturations, blood pressure, adequacy of pulmonary ventilation,and response to care were monitored throughout the procedure. The physical status of the patient was re-assessed after the procedure. After I obtained informed consent, the scope was passed under direct vision. Throughout theprocedure, the patient's blood pressure, pulse, and oxygen saturations were monitored continuously. TheOlympus Pediatric Colonosocpe was introduced through theanus and advanced to the cecum, identified byappendiceal orifice and ileocecal valve. The colonoscopy was performed without difficulty. The patient tolerated the procedure well. The quality of the bowel preparation was good. Findings: Hemorrhoids were found on perianal exam. The exam was otherwise without abnormality ondirect and retroflexion views. Procedure Code(s): --- Professional --- G0121, Colorectal cancer screening; colonoscopy on individual not meeting criteria for high risk Diagnosis Code(s): --- Professional --- Z12.11, Encounter for screening for malignantneoplasm of colon K64.9, Unspecified hemorrhoids CPT copyright 2020 [employer]. All rights reserved. The codes documented in this report are preliminary and upon coat ironer hand reviewmay be revised to meet current compliance requirements. ROYER Ruvalcaba DO 11/24/2024 12:35:28 PM This report has been signed electronically.Royer Ruvalcaba DO Number of Addenda: 0 Note Initiated On: 11/24/2024 12:13 PM Scope Withdrawal Time: 0 hours 8 minutes 51 seconds Scope In: 12:21:37 PM Scope Out: 12:33:36 PM Endoscopy Department at [address] [phone] IMPRESSION: - Hemorrhoids found on perianal exam. - The examination was otherwise normal on directand retroflexion views. - No specimens collected. Recommendation: - - Discharge patient to home. - Resume previous diet. - Continue present medications. - Repeat colonoscopy in 10 years for screening purposes. - Return to primary care physician. Royer Ruvalcaba DO GI~PROCEDURE ORDERABLES Final Re sult * (ABNORMAL) Lipid panel (01/19/2024) LDL/HDL Ratio 4 0 - 4 Triglycerides 177(A) 0 - 150 mg/dL Cholesterol 191 0 - 200 mg/dL HDL 51 >=40 mg/dL LDL Cholesterol 105(A) 0 - 100 mg/dL Blood Venous blood specimen / Unknown [facility] Provider LAB BLOOD ORDERABLES Antoinette l Result * JONAS SCREENING DIGITAL (12/10/2023 8:59 AM EDT) Anatomical Region Laterality Modality Mammography 12/10/2023 8:23 AM EDT Narrative 12/10/2023 8:59 AM EDT [facility] Diagnostic Imaging Department [address] [place] [id number] Patient: TRUONG LEOJAMES Cantu./Age/Sex: 1955 - 68 - F Unit#: [id number] Location/Status: [facility]/REG CLI Mnemonic/Ordering Site: [facility] Ordering Physician: ANAY BRADY MD [facility] Screening Digital - 12/10/23 - 0845 Report Status:Signed EXAM: [facility] Screening Digital EXAM DATE AND TIME: 12/10/2023 8:46 AM HISTORY: Screening. COMPARISON: 12/03/22, 11/28/21, 11/26/20 TECHNIQUE: Bilateral digital breast tomosynthesis was performed in the CC and MLO projections. Computer aided detection with Lytro 3D 3.1 was employed. TISSUE DENSITY: a. The breasts are almost entirely fatty. FINDINGS: No suspicious masses, grouped microcalcifications, or areas of architectural distortion are seen. There are rare benign calcifications. The skin and vascularity are unremarkable. IMPRESSION: Stable mammographic appearance of the breasts. No evidence of malignancy is seen. A negative mammogram in the presence of a clinically suspicious palpable abnormality does not preclude the possibility of malignancy or alter the indications for biopsy. BI-RADS: Category 2: Benign RECOMMENDATION(S): 1: Routine screening mammogram BILATERAL in 1 year. Dictating Physician: GRETA GRAHAM MD Electronically Signed by: GRETA GRAHAM MD Dic Date/Time: 12/10/23858 Sign date/Time: 12/10/23858 Procedure Note Greta Graham MD - 05/02/2024 [facility] Diagnostic Imaging Department [address] [place] [id number] Patient: JANETHJOSY D.O.B./Age/Sex: 1955 - 68 - F Unit#: [id number] Location/Status: [facility] CLI Mnemonic/Ordering Site: [facility] Ordering Physician: ANAY BRADY MD [facility] Screening Digital - 12/10/23 - 45 Report Status:Signed EXAM: [facility] Screening Digital EXAM DATE AND TIME: 12/10/2023 8:46 AM HISTORY: Screening. COMPARISON: 12/03/22, 11/28/21, 11/26/20 TECHNIQUE: Bilateral digital breast tomosynthesis was performed in the CCand MLO projections. Computer aided detection with Lytro 3D 3.1was employed. TISSUE DENSITY: a. The breasts are almost entirely fatty. FINDINGS: No suspicious masses, grouped microcalcifications, or areas ofarchitectural distortion are seen. There are rare benign calcifications. The skin and vascularity are unremarkable. IMPRESSION: Stable mammographic appearance of the breasts. No evidence of malignancyis seen. A negative mammogram in the presence of a clinically suspicious palpable abnormality does not preclude the possibility of malignancy or alter the indications for biopsy. BI-RADS: Category 2: Benign RECOMMENDATION(S): 1: Routine screening mammogram BILATERAL in 1 year. Dictating Physician: GRETA GRAHAM MD Electronically Signed by: GRETA GRAHAM MD Dic Date/Time: 12/10/23858 Sign date/Time: 12/10/23 0859 Anay Brady MD IMG BI PROCEDURES Final Result * Hepatitis C Screening (06/12/2020) Hepatitis C Screening abstracted Historical Provider MD HEALTH MAINTENANCE Final Result from Last 3 Months or Most Recently Relevant to Health Maintenance Insurance [employer] - [place] MEDICARE ADVANTAGE Care Teams Greens Tier Relationship Specialty Start Date End Date Anay Brady MD [address] [address] PCP - General Internal Medicine 12/18/20
--- OUTSIDE RECORDS SUMMARY | 2025-05-10 11:18 | XMS_ITS | Encounter Summary ---
Author Organization [facility] Address [address] [place] [address] Care Team Providers Care Paper Tester Name Role Phone Feli Brady MD Primary Care Provider [phone] Reason for Visit * Reason Onset Date Comments Medication Problem 05/08/2025 Encounter Details Date Type Department Care Team ([facility] st Contact Info) Description 05/08/2025 Telephone Internal Medicine [facility] [address] [place] [phone] Feli Brady MD [address] [place] [address] Social History Tobacco Use Types Packs/Day Years Used Date Smoking Tobacco: Never Smokeless Tobacco: Never Alcohol Use Standard Drinks/Week Comments Yes 0 [...] care for your loved ones. For example, early childhood education worker or elderly care for an older adult? [...] Orientation Straight 08/09/2024 1: 34 PM EST documented as of this encounter Ordered Prescriptions Prescription Sig Dispense Quantity Refills Last Filled Start Date End Date mirtazapine (REMERON) 7.5 mg tablet Take 1 tablet (7.5 mg total) by mouth at bedtime. 30 each 05/08/2025 11/04/2025 mirtazapine (REMERON) 7.5 mg tablet Take 1 tablet (7.5 mg total) by mouth at bedtime. 30 each 05/08/2025 05/08/2025 documented in this encounter Progress Notes * Arelis Baxter - 05/08/2025 11:07 AM EDT Pt called and requested a new medication to help her sleep because the warning states to not take if you take tramadol or headache medication and she takes both and was prescribed trazodone. Please advise Cb# [phone] documented in this encounter Plan of Treatment Upcoming Encounters Date Type Department Care Team (Late st Contact Info) Description 05/18/2025 12:00 PM EDT Treatment [address] [phone] Daron Canales, ROOFING TECHNICIAN 05/25/2025 9:30 AM EDT Treatment [address] [phone] Daron Canales, ROOFING TECHNICIAN 06/01/2025 9:30 AM EDT Treatment [address] [phone] Daron Canales, ROOFING TECHNICIAN 06/08/2025 9:30 AM EDT Treatment [address] [phone] Gracie Treviño, PT 06/15/2025 9:30 AM EDT Treatment [address] [address] Gracie Treviño, PT 11/07/2025 9:00 AM EST Office Visit Internal Medicine [address] [phone] Feli Brady MD [address] [place] [phone] documented as of this encounter Visit Diagnoses Not on filedocumented in this encounter Discontinued Medications Medication Sig Discontinue Reason Start Date End Da te traZODone (DESYREL) 50 mg tablet Take 1 tablet (50 mg total) by mouth at bedtime as needed for sleep. 05/03/2025 05/08/2025 mirtazapine (REMERON) 7.5 mg tablet Take 1 tablet (7.5 mg total) by mouth at bedtime. Reorder 05/08/2025 05/08/2025 documented as of this encounter Additional Health Concerns Assessment Noted Time PHQ-9 Depression Total Score: 0 12/01/19 25 8:35 AM EDT documented as of this encounter Care Teams Paper Tester Relationship Specialty Start Date End Date Feli Brady MD [address] [phone] PCP - General Internal Medicine 12/18/20 documented as of this encounter
== END 2025-05-10 10:47 | disposition home or self-care (01) ==
LOC: HO.HSM 10:26
PROVIDERS: PCP Internal Medicine; Referring Provider Internal Medicine; Visit Provider Registered Nurse
DX: G43.009 Migraine without aura, not intractable, without status migrainosus (principal); G62.9 Polyneuropathy, unspecified
CPT/HCPCS: 99214

== ENCOUNTER → 2025-05-10 10:25 | Outpatient (BNVA) | payer MEDICARE, SELFPAY | PROVIDERS: PCP Internal Medicine; Referring Provider Internal Medicine; Visit Provider Registered Nurse | DX: G43.009 Migraine without aura, not intractable, without status migrainosus (principal); G62.9 Polyneuropathy, unspecified | CPT/HCPCS: 99212 ==